=== PATIENT | female | born 1935 ===

== ENCOUNTER 2022-09-25 16:51 | Emergency (ER) | payer MEDICARE ==
[~2022-09-25] VITALS: Ht 160 cm; Wt 72.0 kg
[2022-09-25 16:56] VITALS: BP 196/78
[2022-09-25] MEDS ORDERED: ibuprofen tablet 400 MG TABLET PO ONE (18:50)
[2022-09-25] MEDS ORDERED: acetaminophen 325mg tablet PO ONE (18:50)
== END 2022-09-25 19:36 | disposition home or self-care (01) ==
LOC: ER 16:52
DX: S86.911A Strain of unspecified muscle(s) and tendon(s) at lower leg level, right leg, initial encounter (principal); M25.561 Pain in right knee; M66.0 Rupture of popliteal cyst; Z91.013 Allergy to seafood; Z88.2 Allergy status to sulfonamides; X58.XXXA Exposure to other specified factors, initial encounter; Y93.89 Activity, other specified; Y92.89 Other specified places as the place of occurrence of the external cause; Y99.8 Other external cause status
CPT/HCPCS: 29530; 73564; 99283